=== PATIENT | male | born 1955 | race Caucasian/White ===

== ENCOUNTER → 2023-12-09 08:07 | Outpatient (REF) | payer MEDICARE, MEDICAID, SELFPAY | LOC: RAD 08:07 | PROVIDERS: ATTENDING PHYSICIAN Physician Assistant Medical | DX: K43.9 Ventral hernia without obstruction or gangrene (principal) | CPT/HCPCS: 76705 ==

== ENCOUNTER → 2023-12-22 12:36 | Outpatient (REF) | payer MEDICARE, SELFPAY | LOC: HWRAD 12:36 | PROVIDERS: ATTENDING PHYSICIAN Surgery; FAMILY PHYSICIAN Physician Assistant Medical | DX: K42.9 Umbilical hernia without obstruction or gangrene (principal) | CPT/HCPCS: 74177; Q9967 ==

== ENCOUNTER 2024-03-21 06:45 | Day surgery (SDC) | payer MEDICARE, SELFPAY ==
[2024-03-09 14:06] VITALS: BMI 34.2
[2024-03-21] VITALS (9 sets, daily range): BP systolic 128–145; BP diastolic 74–94; BMI 34.2
[2024-03-21] MEDS: NORMOSOL-R/PLASMALYTE-A 1000 IV (10:55)
[2024-03-21] MEDS: TYLENOL 1000 MG PO (11:32)
[2024-03-21] MEDS: HEPARIN 5000 UNITS SC (11:33)
--- NOTE | 2024-03-21 15:02 | OR.RPT ---
Operative Report
Operative Report
Primary Surgeon: Shakira
Assisting: Flakita CRANDALL
Pre-op Diagnosis: Incarcerated umbilical hernia
Post-op Diagnosis: Same
Procedure Performed: Robot assisted laparoscopic repair of incarcerated umbilical hernia (5cm defect, rTAPP)
Anesthesia Type: GETA + TAP block
Specimen / Cultures: None
Estimated Blood Loss: 15cc
Complications: None immediate
Operative Findings: 5cm x 4xm defect, 15cm x 15cm bard soft mesh
Date of surgery: 03/14/24
Indications:� This 58M developed a symptomatic incarcerated umbilical hernia. Robot assisted laparoscopic repair was planned.
Description of procedure:� The patient was taken to the operating room and positioned into supine position. The patient�s abdomen was prepped and draped in standard sterile fashion. A time-out was completed verifying correct patient, procedure,
site, positioning, and implants and special equipment prior to beginning this procedure.� The hernia was partially manually reduced after induction. A stab incision was made in the left upper quadrant, a Veress needle was inserted and proper
position was confirmed by aspiration and saline drop test. Following this, pneumoperitoneum was created with insufflation of carbon dioxide to 12 mmHg. Then a 8mm robotic trocar was inserted at the left anterior axillary line at the level of the
umbilicus. The laparoscope was inserted and no injuries were identified in the area. Under direct visualization, the initial trocar was exposed and two 8mm trocars were placed a hand's breadth above and below the initial trocar under direct
visualization.
Attention was turned to the umbilical defect. The peritoneum was incised several cm superior to the defect and a peritoneal flap was developed in transverse and caudad directions using blunt and sharp dissection and judicious electrocautery. The
defect was identified and measured as above. Incarcerated fatty contents were reduced. The defect was closed with 0 PDS stratafix suture. A 15cm x 15cm bard soft mesh was passed into the abdomen. It was placed against the underside of the abdominal
wall and secured in place with 2-0 vicryl sutures at all four corners. The flap was closed over the mesh and secured with 2-0 monocryl stratafix suture. A 14g angiocath was used to decompress the preperitoneal space. Flap rents were repaired with
running barbed 2-0 absorbable suture. The flap sealed and suctioned nicely up to the abdominal wall. The mesh did not fold nor curl. A transversus abdominis plane block was then performed under laparoscopic vision with marcaine/decadron.
After ensuring adequate hemostasis, the trocars were removed and the pneumoperitoneum allowed to escape. The trocar incisions were closed at the skin level using 4-0 monocryl and topical skin adhesive. All counts were correct and the patient
tolerated the procedure well and was taken to the postanesthesia care unit in stable condition.
The assistance of Flakita CRANDALL was required due to the complexity of the procedure. During the procedure she assisted with retraction, resection, block and closure of the wound.
== END 2024-03-21 16:45 | disposition home or self-care (01) ==
LOC: SDS 06:45
PROVIDERS: ATTENDING PHYSICIAN Surgery; FAMILY PHYSICIAN Physician Assistant Medical
DX: K42.0 Umbilical hernia with obstruction, without gangrene (principal)
CPT/HCPCS: 49594; 36415; 93005; C1781